=== PATIENT | male | born 1955 | race Caucasian/White ===

== ENCOUNTER → 2023-08-25 10:44 | Outpatient (REF) | payer OTHER, SELFPAY | LOC: RAD 10:44 | PROVIDERS: ATTENDING PHYSICIAN Specialist; FAMILY PHYSICIAN Family Medicine | DX: C61 Malignant neoplasm of prostate (principal); R97.21 Rising PSA following treatment for malignant neoplasm of prostate | CPT/HCPCS: 74178; Q9967 ==

== ENCOUNTER → 2024-02-03 10:07 | Outpatient (REF) | payer OTHER, SELFPAY | LOC: PET 10:07 | PROVIDERS: ATTENDING PHYSICIAN Specialist | DX: C61 Malignant neoplasm of prostate (principal) | CPT/HCPCS: 78815 ==